=== PATIENT | male | born 1955 | race Two or more races ===

== ENCOUNTER 2018-10-29 18:06 | Emergency (ER) | payer SELFPAY ==
[~2018-10-29] VITALS: Ht 175.3 cm; Wt 99.8 kg
[2018-10-29 18:38] VITALS: BP 140/64
[2018-10-29] MEDS ORDERED: BACLOFEN 10 MG TAB PO ONE (20:45)
[2018-10-29] MEDS ORDERED: HYDROcodone-ACET 10/325MG TAB PO ONE (20:45)
== END 2018-10-29 21:46 | disposition home or self-care (01) ==
LOC: ER 18:10
DX: S39.012A Strain of muscle, fascia and tendon of lower back, initial encounter (principal); S80.02XA Contusion of left knee, initial encounter; S80.01XA Contusion of right knee, initial encounter; M62.838 Other muscle spasm; W19.XXXA Unspecified fall, initial encounter; Y93.89 Activity, other specified; Y99.8 Other external cause status; Y92.89 Other specified places as the place of occurrence of the external cause
CPT/HCPCS: 29505; 72040; 72100; 73562